=== PATIENT | female | born 1950 | race Caucasian/White ===

== ENCOUNTER 2016-10-03 11:39 | Emergency (ER) | payer OTHER ==
[2016-10-03 12:14] VITALS: BP 129/84
--- NOTE | 2016-10-03 12:24 | UC ---
Hip/Pelvis Pain - HPI Summary HPI Summary: 66 yo female with right hip pain for over a yr has frequent falls past 2 months has had a limp leg jenn - History Of Current Complaint Chief Complaint: UCLowerExtremity Stated Complaint: HIP PAIN Time Seen by Provider: 10/03/16 12:15 Hx Obtained From: Patient Onset/Duration: Gradual Onset, Lasting Days Timing: Constant Severity Initially: Mild Severity Currently: Moderate Pain Intensity: 4 Pain Scale Used: 0-10 Numeric Location: Diffuse Character Of Pain: Aching, Throbbing Aggravating Factor(s): Weight Bearing Alleviating Factor(s): Rest - Allergies/Home Medications Allergies/Adverse Reactions: Allergies Allergy/AdvReac Type Severity Reaction Status Date / Time Carisoprodol [From [employer]] Allergy Intermediate Rash Verified 10/30/15 14:06 PMH/Surg Hx/FS Hx/Imm Hx Endocrine History Of: Denies: Diabetes, Thyroid Disease Cardiovascular History Of: Reports: Hypertension - no meds Denies: Cardiac Disorders Respiratory History Of: Denies: COPD, Asthma GI/ History Of: Denies: Ulcer - Surgical History Surgical History: Yes Surgery Procedure, Year, and Place: Left total [place] [facility] [place], Left rotator cuff repair [facility] [place]; pilonidal cyst - Family History Known Family History: Positive: Cardiac Disease, Hypertension, Diabetes, Other Family History: CA, Alzheimer - Social History Alcohol Use: Occasionally Substance Use Type: None Smoking Status (MU): Never Smoked Tobacco Have You Smoked in the Last Year: No Review of Systems Constitutional: Negative Skin: Negative Eyes: Negative ENT: Negative Respiratory: Negative Cardiovascular: Negative Gastrointestinal: Negative Genitourinary: Negative Motor: Negative Neurovascular: Negative Musculoskeletal: Arthralgia Neurological: Negative Psychological: Negative All Other Systems Reviewed And Are Negative: Yes Physical Exam Triage Information Reviewed: Yes Appearance: Well-Appearing, No Pain Distress, Well-Nourished Vital Signs: Initial Vital Signs Temp 96.7 F 10/03/16 12:09 Pulse 80 10/03/16 12:09 Resp 20 10/03/16 12:09 BP 129/84 10/03/16 12:09 Pulse Ox 97 10/03/16 12:09 Eyes: Positive: Conjunctiva Clear ENT: Positive: Hearing grossly normal, TMs normal. Negative: Nasal congestion, Tonsillar exudate, Trismus, Muffled/hoarse voice Neck: Positive: Nontender, No Lymphadenopathy Respiratory: Positive: Lungs clear, Normal breath sounds, No respiratory distress Cardiovascular: Positive: RRR Musculoskeletal: Positive: ROM Limited @ - right hip, Other: - tender r greater troch Neurological: Positive: Alert Psychological Exam: Normal Skin Exam: Normal Hip Injury Course/Dx - Differential Dx/Diagnosis Provider Diagnoses: right hip DJD. right hip greater trochanteric burisitis Discharge - Discharge Plan Condition: Stable Disposition: HOME Prescriptions: Meloxicam(NF) [Mobic(NF)] 15 mg PO DAILY PRN #30 tab PRN Reason: Pain - Moderate To Severe Patient Education Materials: Hip Bursitis (ED), Arthritis (ED) Forms: *Work Release Referrals: Don Meek MD [Medical Doctor] - Additional Instructions: you may take tylenol if needed Images Front/Back of Body, Lg (Louisa): 1 - pain here 2 - pain here
--- NOTE | 2016-10-03 12:50 | RAD ---
HISTORY: Right hip weakness and pain COMPARISONS: None VIEWS: 3, Frontal view of the pelvis with frontal and frog-leg views of the right hip FINDINGS: BONE DENSITY: Normal. BONES: There is no displaced fracture. JOINTS: There is moderate osteoarthritis of the right hip. ALIGNMENT: There is no dislocation. SOFT TISSUES: Unremarkable. OTHER FINDINGS: None. IMPRESSION: OSTEOARTHRITIS. NO ACUTE OSSEOUS INJURY. IF SYMPTOMS PERSIST, RECOMMEND REPEAT IMAGING.
== END 2016-10-03 13:15 | disposition home or self-care (01) ==
LOC: UCEAST 11:39
DX: M16.11 Unilateral primary osteoarthritis, right hip (principal); M70.61 Trochanteric bursitis, right hip; Y93.9 Activity, unspecified; Z96.652 Presence of left artificial knee joint; Z88.8 Allergy status to other drugs, medicaments and biological substances
CPT/HCPCS: 99212; G0463

== ENCOUNTER 2018-11-21 08:48 | Inpatient (IN) | payer MEDICARE ==
[~2018-11-21 08:48] MED LIST: Buffered Lidocaine 1% SYRIN* 1 ML/SYRINGE INTRADERM ONE; Famotidine IV* 10 MG/ML 2 ML (20 mg) IV ONE; Gabapentin CAP(*) 300 MG PO ONE; Lactated Ringers 1000 ML Bag* 1,000 ML IV SCH; Tranexamic Acid 1,000 MG in NS 0.9% 50 ML* (outpatient use) IV SCH
--- OUTSIDE RECORDS SUMMARY | 2018-11-21 08:53 | XMS REPORT | Continuity of Care Document ---
:1950 External Reference #:[id number] Author Name Milagros Roblero Care Team Providers Name Role Phone Shahida Rocha MD Primary Care Physician Unavailable Payers Date Identification Numbers Payment Provider Subscriber Policy Number: [id number] Medicare Blue Ppo Mai Day PayID: [id number] [address] [address] Policy Number: [id number] [facility] Mai Day Group Number: [id number] [address] PayID: [id number] SHANITA Aguilar [phone] Expires: 2010 Policy Number: [id number] Of [place] Mai Day Group Number: [facility] [address] PayID: [id number] [address] [address] Onset: 2013 Policy Number: [id number] Katie Day PayID: [id number] [address] [place] [address] Advance Directives Description No Information Available Problems Description No Information Family History Date Family Member(s) Observation Comments General Diabetes General Heart Disease General Hypertension General Cancer General Rheumatoid Arthritis Father due to Colon Disease () Social History Type Date Description Comments Sex Unknown Lives With Alone 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 ETOH Use Occasionally consumes alcohol Tobacco Use Start: Unknown Patient has never smoked Smoking Status Reviewed: 11/06/18 Patient has never smoked Exercise Type/Frequency Exercises sporadically Allergies, Adverse Reactions, Alerts Date Description Reaction Status Severity Comments 10/06/2016 Soma Active rash Medications Medication Date Status Form Strength Qnty SIG Indications Ordering Provider No Active Active Unknown Medications 019 Meloxicam Hx Tablets 15mg 30tabs 1 by Aditya Chery, 000 - mouth M.DCesar every 019 day Vitamin C Hx Chewtabs 500mg 1 tab by Unknown 000 - mouth twice a 019 day take with iron Multi Vitamin Hx Tablets daily Unknown 000 - 019 Immunizations Description No Information Available Vital Signs Date Vital Result Comment 11/06/2018 1:20pm Height 65 inches 5'5" Weight 220.00 lb BP Systolic 124 mmHg BP Diastolic 76 mmHg Respiratory Rate 18 /min Body Temperature 97.6 F Pain Level 10 BMI (Body Mass Index) 36.6 kg/m2 10/06/2016 2:57pm Height 65 inches 5'5" Weight 215.00 lb Heart Rate 77 /min BP Systolic Sitting 138 mmHg BP Diastolic Sitting 78 mmHg Respiratory Rate 18 /min Body Temperature 98.0 F Pain Level 6 BMI (Body Mass Index) 35.8 kg/m2 Results Description No Information Available Procedures Date Code Description Status 04/29/2010 49654 Xray Knee 3 Views Completed 04/29/2010 06166 Rad Exam; Knee, Ap&L Completed 03/17/2010 81005 TKR Total Knee Replacement Completed 03/17/2010 75202 TKR Total Knee Replacement Completed 03/09/2010 61995 EKG, Interpretation Only Completed 03/09/2010 80738 Xray Knee 3 Views Completed 03/09/2010 97538 Rad Exam; Knee, Ap&L Completed 06/04/2003 67416 ECHO/Stress Completed 06/04/2003 00198 Treadmill Interp/Report Only Completed 06/04/2003 87980 Stress Test Supervsn W/Out I/R Completed Encounters Type Date Location Provider Dx Diagnosis Office Visit 10/06/2016 Mark Chery M.D. M16.11 Unilateral primary 2:00p [facility] osteoarthritis, right hip Office Visit 01/17/2013 Mark Chery M.D. 924.11 Contusion Knee 9:00a [facility] 924.00 Contusion Thigh 844.9 Sprains & Strains Knee & Leg Unspec Office Visit 03/09/2010 8:45a Orthopedic Aditya Chery, 715.96 Osteoarthrosis [facility] Unspec [facility] Localized Lower Leg Office Visit 02/23/2010 9:00a Orthopedic Vilma 716.96 Arthropathy Unspec [facility] of Treatment Future Appointment(s):12/20/2018 1:45 pm - Aditya Chery M.D. at [facility]11/21/2018 11:00 am - Aditya Chery M.D. at [facility]11/06/2018 - Aditya Chery M.D.M16.11 Unilateral primary osteoarthritis, right hip
--- OUTSIDE RECORDS SUMMARY | 2018-11-21 08:53 | XMS REPORT | Continuity of Care Document ---
:1950 External Reference #:[id number] Author Name Vane Rocha M.D. Address [address] [place] [address] Care Team Providers Name Role Phone Vane Rocha M.D. Care Team Information Department Head Unavailable Vane Rocha M.D. Primary Care Physician Unavailable Payers Date Identification Numbers Payment Provider Subscriber Effective: 2018 Policy Number: [id number] Medicare Blue Ppo Mai Rivera Group Number: [id number] [address] [address] PayID: [id number] [place] [address] Effective: 2015 Policy Number: [id number] [employer]MVP Mai Rivera Expires: 2018 Group Number: [id number] [address] PayID: [id number] [place] [address] Advance Directives Description No Information Available Problems Date Description Provider Status Onset: 10/24/2018 Obesity Vane Rocha M.D. Active Onset: 10/24/2018 Hyperlipidemia Vane Rocha M.D. Active Onset: 10/24/2018 Osteoarthritis of hip, unspecified Vane Rocha M.D. 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 [employer] Contact with blood and/or other bodily fluids at work Tobacco Use Start: Unknown Never Smoked Cigarettes Smoking Status Reviewed: 10/24/18 Never Smoked Cigarettes ETOH Use Occasionally consumes 2 glasses a few alcohol times a week Tobacco Use Start: Unknown nonsmoker Exercise Type/Frequency Exercises rarely Allergies, Adverse Reactions, Alerts Date Description Reaction Status Severity Comments 11/18/2014 Soma RASH Active Medications Medication Date Status Form Strength Qnty SIG Indications Ordering Provider No Active 10/24/ Active Unknown Medications 2018 Note Due To Hx Mai had a Adriana Health Issues 2016 - normal Abhinav, 03/19/ 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 2016 for next 4 days Excuse 12/03/ Hx seen today; 465.8 Vane 2014 - excuse 12/03 [place], 09/30/ and 12/04 M.D. 2015 Sulfamethoxazo 11/18/ Hx Tablets 800-160mg 20tabs 1 tab twice 611.79 Vane he/Trimethopri 2015 - a day x 10 [place], m DS 12/03/ days M.D. 2014 Lorabid 11/23/ Hx 200mg 14unit 1 PO PO bid Adriana 1999 - s Abhinav, 11/30/ CAUSTIC LOADER 1999 Emycin 05/26/ Hx Tabs 333mg 30tabs 1 PO tid Austin Turpin 1997 - For 10 Days Xavier, 11/23/ M.D. 1999 Penicillin VK 07/09/ Hx 250 0units tid Virgilio Sol 1996 - Jarvis, M.D. 1999 Penicillin VK 07/09/ Hx 250 0units tid Virgilio Sol 1996 - Jarvis, M.D. 1999 Penicillin VK 07/09/ Hx 250 0units tid Virgilio Sol 1996 - Jarvis, 11/23/ M.D. 1999 Multivitamins/ / Hx Capsules 1 by mouth Unknown Vitafusion For 0000 - every day Woman 2018 Levaquin / Hx Tablets 500mg 1 by mouth Unknown 0000 - every day 2015 Albuterol / Hx Nebulizer (2.5mg/3ML use one Unknown Sulfate 0000 - ) 0.083% vial in 10/24/ nebulizer 2019 every 4 hours as needed Immunizations Description No Information Available Vital Signs Date Vital Result Comment 10/24/2018 2:24pm BP Systolic 120 mmHg BP Diastolic 90 mmHg BP Systolic Recheck 110 mmHg BP Diastolic Recheck 80 mmHg Heart Rate 76 /min Body Temperature 98.1 F Respiratory Rate 16 /min Height 64 inches 5'4" Weight 222.00 lb BMI (Body Mass Index) 38.1 kg/m2 Right Visual Acuity Distance 20/20 Left Visual Acuity Distance 20/20 04/21/2016 1:41pm BP Systolic 100 mmHg BP Diastolic 64 mmHg Heart Rate 84 /min Body Temperature 98.1 F Respiratory Rate 16 /min Height 63.5 inches 5'3.50" Weight 211.25 lb BMI (Body Mass Index) 36.8 kg/m2 03/19/2016 8:44am BP Systolic 136 mmHg BP Diastolic 80 mmHg Heart Rate 68 /min Body Temperature 97.4 F Respiratory Rate 18 /min Height 63.5 inches 5'3.50" Weight 210.00 lb BMI (Body Mass Index) 36.6 kg/m2 12/18/2015 10:13am BP Systolic 130 mmHg BP Diastolic 92 mmHg Heart Rate 78 /min Body Temperature 98.4 F Height 63.5 inches 5'3.50" Weight 217.00 lb BMI (Body Mass Index) 37.8 kg/m2 09/30/2015 1:58pm BP Systolic 126 mmHg BP Diastolic 80 mmHg Heart Rate 76 /min Body Temperature 98.0 F Respiratory Rate 20 /min Height 64 inches 5'4" Weight 218.00 lb BMI (Body Mass Index) 37.4 kg/m2 12/03/2014 11:42am BP Systolic 120 mmHg BP Diastolic 80 mmHg Heart Rate 80 /min Body Temperature 98.2 F Respiratory Rate 20 /min O2 % BldC Oximetry 97 % Height 64 inches 5'4" Weight 210.00 lb BMI (Body Mass Index) 36.0 kg/m2 11/18/2014 8:58am BP Systolic 116 mmHg BP Diastolic 78 mmHg Heart Rate 72 /min Body Temperature 96.3 F Height 64 inches 5'4" Weight 213.25 lb BMI (Body Mass Index) 36.6 kg/m2 11/24/1999 2:23pm Body Temperature 97.3 F Weight 190.00 lb Results Test Date Facility Test Result H/L Range Note Ua - Non Micro (Fma) 12/18/2015 [facility] Appearance CLEAR (607)- - Color YELLOW Glucose, Urine (Fma/[facility]/CTX) NEG Bilirubin NEG Ketones NEG SP Grav 1.010 Blood NEG PH 6.0 Protein NEG Urobil 0.2 Nitrite NEG Leukocytes (Fma/[facility] [place]) NEG Measles/Mumps/Rubella 12/18/2015 [facility] Rubella 11.20 Immune 1, 2 Immunity 14[address] [facility] Antibodies, index >0.99 [place] [address] IgG (607)- - Rubeola Ab, IgG >300.0 AU/mL Immune >29.9 3 Mumps Abs, IgG 209.0 AU/mL Immune >10.9 4 Complete Blood Count 11/18/2014 [facility] (a) WBC 6.8 x10^3/UL 3.6-9.6 RBC 4.95 x10^6/UL 3.90-5.70 HGB 15.0 g/dL 12.1-17.2 HCT 46 % 36-50 MCV 92.0 fL 82.2-97.4 MCH 30.3 pg 27.6-33.3 MCHC 33.0 g/dL 33.0-35.5 RDW 12.8 % 11.6-13.7 PLT 263 x10^3/UL 150-400 MPV 7.2 fL Low 7.4-10.4 Gran # 4.3 x10^3/UL 1.5-7.2 Lymph# 2.2 x10^3/UL 0.7-4.9 [place]# 0.3 x10^3/UL 0.1-0.9 Gran % 61.4 % 42.2-75.2 Lymph % 33.7 % 20.5-51.1 [place]% 4.9 % 1.7-9.3 Comprehensive Metabolic 11/18/2014 Jensen Ania ([facility]) Sodium 137 mEq/L 134-149 Prof Potassium 3.9 mEq/L 3.6-5.5 Chloride 99 mEq/L 94-112 Carbon Dioxide 30 mEq/L 21-32 Glucose 104 mg/dL 70-105 BUN 13 mg/dL 6-26 Creatinine 0.6 mg/dL 0.6-1.4 BUN/Creat Ratio 21.7 CALC 8.0-36.0 Calcium 10.1 mg/dL 8.6-10.2 Total Protein 7.5 g/dL 6.4-8.3 Albumin 4.2 g/dL 3.8-5.5 Globulin 3.3 g/dL 2.0-4.8 A/G Ratio 1.3 CALC 0.6-2.3 Alk. Phosphatase 73 U/L 30-110 Alt (SGPT) 17 U/L 7-35 Ast (Sgot) 17 U/L 5-34 Total Bilirubin 0.7 mg/dL 0.2-1.3 Lipid Profile 11/18/2014 Jensen Ania (Fma) Cholesterol 242 mg/dL High 120-200 Triglycerides 156 mg/dL 30-200 HDL Cholesterol 47 mg/dL 30-85 LDL (Calculated) 164 CALC High 0-129 VLDL Cholesterol 31 mg/dL 0-50 HDL Risk Factor 5.1 CALC High 0.0-4.4 Ua - Non Micro (Fma) 11/18/2014 [facility] Appearance CLEAR (607)- - Color YELLOW Glucose, Urine (Fma/[facility]/CTX) NEG Bilirubin NEG Ketones NEG SP Grav <=1.005 Blood NEG PH 6.0 Protein NEG Urobil 0.2 Nitrite NEG Leukocytes (Fma/[facility]) NEG Laboratory test 11/18/2014 [facility] Thin Prep W/HPV SEE NOTE 5 finding [address] [place] [address] [phone] 1 1 SST 2 Non-immune <0.90 Equivocal 0.90 - 0.99 Immune >0.99 3 Negative <25.0 Equivocal 25.0 - 29.9 Positive >29.9 Presence of antibodies to Rubeola is presumptive evidence of immunity except when acute infection is suspected. 4 Negative <9.0 Equivocal 9.0 - 10.9 Positive >10.9 A positive result generally indicates past exposure to Mumps virus or previous vaccination. 5 [employer] DEPARTMENT OF PATHOLOGY or Ext. 0366, Fax COMBINED HPV / TOPOGRAPHICAL DRAFTER CYTOLOGY REPORT Patient: MAI RIVERA : 1950 AGE: 64 Y SEX: F Acct: [id number] Procedure Date: 11/18/2014 Date Received: 11/19/2014 Requesting Provider: VANE VALIENTE MD Location: [facility] [place] Case No. [id number] Requisition #: [id number] CYTOLOGIC INTERPRETATION: SPECIMEN ADEQUACY SATISFACTORY FOR EVALUATION, ENDOCERVICAL TRANSFORMATION ZONE COMPONENT PRESENT GENERAL CATEGORIZATION NEGATIVE FOR INTRAEPITHELIAL LESIONS OR MALIGNANCY RECOMMENDATIONS See Related Reference Test Result below. Refer to the corresponding web sites for 2012 updated general recommendation guidelines of U.S. preventive service task force for cervical cancer screening, and www.asccp.org//uvestacrx1432. COMMENTS Thin Prep Pap tests are examined with an FDA approved location-guidance system. RELATED REFERENCE TEST RESULT: HPV: "HIGH RISK" Source: CERVICAL Result: NEGATIVE Test Method: Low Volume rfx Performing Location: METHODOLOGY: HPV high risk is performed with the FDA approved Digene HC2 method whenever the specimen is cellular enough and the quantity of sample remaining in the vial after Thin Prep PAP slide preparation equals or greater than 4 ml. In cases of smaller sample (0.5 to 3.9 ml) the HPV high risk testing will be performed with Low Volume rfx. (01 RN) Digene Hybrid Capture (HC2). FDA approved and detects 13 "high risk" HPV types (16/18/31/33/35/39/45/51/52/56/58/59/68) without differentiation. (02 BN) Low Volume rfx detects fourteen "high risk" HPV types (16/18/31/33/35/39/45/51/52/56/58/59/66/68) without differentiation. 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 It is not a diagnostic procedure and should not be used as the sole means of detecting cervical cancer. Both false-positive and false-negative reports do occur. 00 UA Pap Smear performed at [facility] Dir: Concepcion Ramires MD, [address] [facility] [address] 01 job placement counselor [facility] [place] Dir: Jessica Benitez MD, [address] [facility] [address] 02 [facility] [place] Dir: Steven Pillai MD, [address] [place] [id number] For inquiries regarding HPV test results, the physician may contact [facility]: [phone] . Procedures Date Code Description Status 04/21/2016 52094 Electrocardiogram Complete Completed 09/30/2015 27231 Pulse Oximetry Completed 12/03/2014 27042 Pulse Oximetry Completed 11/20/2014 13546522 Mammogram Completed 08/15/2011 30883746 Colonoscopy Completed Encounters Type Date Location Provider Dx Diagnosis Office Visit 04/21/2016 [facility] Office Vane Rocha, R06.02 Shortness of breath 2:00p M.D. Office Visit 03/19/2016 [facility] Office Vane Rocha, J20.9 Acute bronchitis, 8:40a M.D. unspecified Office Visit 12/18/2015 [facility] Office Adriana Abhinav, Z00.01 Encounter for 10:15a CAUSTIC LOADER general adult medical exam w abnormal findings Z12.31 Encntr screen mammogram for malignant neoplasm of breast M25.551 Pain in right hip Office Visit 09/30/2015 2:00p [facility] Office Elizabeth J06.9 Acute upper [place], Afnp-C respiratory infection, unspecified Office Visit 12/03/2014 11:40a Main Office Vane Rocha, 465.8 Upper Respiratory M.D. Infections Acute Other Multiple Sites Office Visit 11/18/2014 9:00a [facility] Vane Rocha, V70.0 Examination M.D. 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 Eat protein and vegetables first then carbohydrates last. Get at least 150 minutes of moderate aerobic activity or 75 minutes of vigorous aerobic activity a week, or a combination of moderate and vigorous activity. General goal of 30 minutes of physical activity a day.Z00.01 Encounter for general adult medical examination with abnormal findingsNew Labs:Comp Metabolic-ALL [facility], Ordered: 10/24/18Lipid Panel-[facility], Ordered: 10/24/18CBC Electronic-ALL [facility], Ordered: 10/24/18Comments:Encourage an active and healthy lifestyle with proper eating habits including fruits, vegetables, 6-8 glasses of water a day and monitoring portion size. Recommend 30 minutes of daily physical activityincluding walking, aerobic exercise, sports, yoga or dance. Any activity is better than no activity.Recommend routine eye and dental exams. Next physical is due in 1-2 years. due sldcnnnE86.9 Osteoarthritis of hip, unspecifiedComments:refer back to Dr Sanders78.5 Hyperlipidemia, unspecifiedComments:Goal LDL is <130, HDL >40, Triglycerides < 200Z12.31 Encounter for screening mammogram for malignant neoplasm of breastNew Xrays:Mammography Screening, Bilateral; 2-View Each Breast, Ordered: Comments:refer for mammogram and DEXAZ12.11 Encounter for screening for malignant neoplasm of colonComments:refer for [id number] Rash and other nonspecific skin eruptionComments:refer ktlxwvkeqwlJ86.20 Alcohol dependence, uncomplicatedComments:Recommendation is no more than 2 alcoholic drinks/day for men and 1 drink/day for womenRecommend cutting back on alcohol use, if needing help doing so call the officeAllNew Medication:No Active Medications -Comments :~B_~U_Medication Management~b_~u_ Patient Understands medications she's taking ? Yes No Are there Barriers to Adherence? Yes No Has the patient been asked about herbal supplements and therapies, and OTC meds? Yes No
[2018-11-21] MEDS ORDERED: Famotidine IV* 10 MG/ML 2 ML (20 mg) ONE (09:34)
[2018-11-21] MEDS ORDERED: ceFAZolin 2 GM in NS PREMIX(*) 2 GM/100 ML BAG IVPB ONE (09:34)
[2018-11-21] MEDS ORDERED: Buffered Lidocaine 1% SYRIN* 1 ML/SYRINGE INTRADERM ONE (09:34)
[2018-11-21] MEDS ORDERED: Gabapentin CAP(*) 300 MG ONE (09:34)
[2018-11-21] MEDS ORDERED: Midazolam* 1 MG/ML 5 ML VIAL (5 MG) ONE (10:55)
[2018-11-21] MEDS ORDERED: fentaNYL* 50 MCG/ML 2 ML VIAL (100 MCG VIAL) ONE (10:55)
[2018-11-21] MEDS ORDERED: Bupivacaine 0.5% W/EPI SDV* 30 ML VIAL ONE (11:48)
[2018-11-21] MEDS ORDERED: Phenylephrine 10 MG/ML VIAL* 1 ML VIAL ONE (12:53)
[2018-11-21] MEDS ORDERED: Lidocaine 2% PF * 5 ML VIAL ONE (12:53)
[2018-11-21] MEDS ORDERED: Ketorolac INJ* 30 MG/ML 1 ML VIAL ONE (12:53)
[2018-11-21] MEDS ORDERED: Propofol* 10 MG/ML 20 ML BTL ONE ×3 (12:53→14:18)
[2018-11-21] MEDS ORDERED: Ondansetron INJ* 2 MG/ML VIAL ONE (12:53)
[2018-11-21] MEDS ORDERED: HYDROmorphone INJ1* 1 MG/ML SYRINGE ONE (13:43)
[2018-11-21] MEDS ORDERED: HYDROmorphone INJ1* 1 MG/ML SYRINGE IV PRN (13:55)
[2018-11-21] MEDS ORDERED: DiMENhydriNATE IV* 50 MG/ML VIAL IV PUSH PRN (13:55)
[2018-11-21] MEDS ORDERED: Naloxone* 0.4 MG/ML 1 ML VIAL IV PRN (13:55)
[2018-11-21] MEDS ORDERED: oxyCODONE/Acetamin 5/325 MG* TAB PO PRN (13:55)
[2018-11-21] MEDS ORDERED: Gabapentin CAP(*) 100 MG PO ONE (13:56)
[2018-11-21] MEDS ORDERED: EPHEDrine (Pressors)* 50 MG/ML VIAL ONE (14:00)
[2018-11-21] MEDS ORDERED: Ondansetron ODT TAB* 4 MG PO PRN (14:58)
[2018-11-21] MEDS ORDERED: diPHENhydraMINE PO* 25 MG PO PRN (14:58)
[2018-11-21] MEDS ORDERED: Cyclobenzaprine TAB* 10 MG PO PRN (14:58)
[2018-11-21] MEDS ORDERED: diPHENhydraMINE IV* 50 MG/ML 1 ml VIAL (BENADRYL) IV PRN (14:58)
[2018-11-21] MEDS ORDERED: Magnesium Hydroxide LIQ* 30 ML UDC PO PRN (14:58)
[2018-11-21] MEDS ORDERED: Ondansetron INJ* 2 MG/ML VIAL IV PRN (14:58)
[2018-11-21] MEDS ORDERED: Docusate CAP* 100 MG PO PRN (14:58)
[2018-11-21] MEDS ORDERED: Morphine INJ* 2 MG/ML 1 ML SYRINGE (TWO MG - NEW SYRINGE VERSION) IV PRN (14:58)
[2018-11-21] MEDS ORDERED: Lactated Ringers 1000 ML Bag* 1,000 ML IV SCH (15:00)
[2018-11-21] MEDS: Acetaminophen TAB* 325 MG PO SCH (16:41)
[2018-11-21] MEDS: traMADol TAB* 50 MG PO SCH ×2 (16:41→19:58)
--- NOTE | 2018-11-21 18:13 | PN ---
Progress Note - Progress Note Date of Service: 11/21/18 Note: Pt seen POD 0. Pain is well controlled, no CP, SOB dizziness, nausea. Dressing CDI, DF/PF intact, DP2+, sensation intact to light touch distally
[2018-11-21] MEDS: ceFAZolin 1 GM ADVAN(*) 1 GM in NS 0.9% 50 ML* 50 ML IVPB SCH (19:59)
[2018-11-22] MEDS: Acetaminophen TAB* 325 MG PO SCH ×5 (00:08→23:56)
[2018-11-22] MEDS: oxyCODONE TAB* 5 MG TAB PO PRN ×3 (00:13→12:58)
[2018-11-22] MEDS: ceFAZolin 1 GM ADVAN(*) 1 GM in NS 0.9% 50 ML* 50 ML IVPB SCH ×2 (03:20→13:24)
[2018-11-22] MEDS: traMADol TAB* 50 MG PO SCH ×4 (03:20→21:04)
[2018-11-22 05:30] LABS: Hematocrit 33 % (33-41); Hemoglobin 11.5 g/dL (12.0-16.0); Mean Platelet Volume 7.8 fL (7.4-10.4); Platelet Count 192 10^3/uL (150-450)
[2018-11-22 05:54] LABS: Calcium 8.1 mg/dL (8.6-10.3); EGFR African American 136.7 (>60); Potassium 3.4 mmol/L (3.5-5.0)
[2018-11-22] MEDS: Aspirin TAB* 325 MG PO SCH (08:51)
--- NOTE | 2018-11-22 09:39 | PN ---
Progress Note - Progress Note Date of Service: 11/22/18 SOAP: Subjective: []Pt seen POD 1 sp RTH. Denies CP, SOB, dizziness, nausea. She had a presyncopal episode when OOB last night with lightheadedness, though has not felt this way since. She has not yet been OOB today. Pain is well controlled. Objective: []General: Appears well, NAD RLE: Right hip dressing CDI, thigh is soft, DF/PF intact, DP2+, sensation intact to light touch distally Calves supple and nontender without erythema, edema or palpable cords Assessment: []POD [address] Chery 11/21/18 Plan: []WBAT PT/OT Posterior hip precautions ASA 325 QD x 30 days for DVT prophylaxis Monitor for lightheadedness, slow position changes Soft BPs, ordered 500 ml bolus NS. Mild hyponatremia resume regular diet and recheck tomorrow. Mild hypokalemia ordered potassium 20 meq PO BID and recheck tomorrow Anticipate DC home tomorrow Vital Signs Temp 97.7 F 11/22/18 07:34 Pulse 79 11/22/18 07:34 Resp 18 11/22/18 08:51 BP 102/44 11/22/18 07:34 Pulse Ox 94 11/22/18 07:34 Intake & Output 11/21/18 11/22/18 11/22/18 18:59 06:59 18:59 Intake Total 2850 2326 600 Output Total 600 0 Balance 2250 276 600 Weight 215 lb Intake: IV Fluids 2850 941 LR 2700 941 NS 100ML, Cefazolin 2G 100 TRANEXAMIC ACID 1GM 50ML 50 IVPB 55 ABX - CEFAZOLIN 55 Oral 1330 600 Output: Cruz 600 2049 Laboratory Last Values Hgb 11.5 g/dL (12.0-16.0) L 11/22/18 05:15 Hct 33 % (33-41) 11/22/18 05:15 Plt Count 192 10^3/uL (150-450) 11/22/18 05:15 MPV 7.8 fL (7.4-10.4) 11/22/18 05:15 Sodium 133 mmol/L (135-145) L 11/22/18 05:15 Potassium 3.4 mmol/L (3.5-5.0) L 11/22/18 05:15 Chloride 104 mmol/L (101-111) 11/22/18 05:15 Carbon Dioxide 25 mmol/L (22-32) 11/22/18 05:15 Anion Gap 4 mmol/L (2-11) 11/22/18 05:15 BUN 7 mg/dL (6-24) 11/22/18 05:15 Creatinine 0.54 mg/dL (0.51-0.95) 11/22/18 05:15 Est GFR ( Amer) 136.7 (>60) 11/22/18 05:15 Est GFR (Non-Af Amer) 113.0 (>60) 11/22/18 05:15 BUN/Creatinine Ratio 13.0 (8-20) 11/22/18 05:15 Glucose 117 mg/dL (70-100) H 11/22/18 05:15 Calcium 8.1 mg/dL (8.6-10.3) L 11/22/18 05:15
[2018-11-22] MEDS ORDERED: NS 0.9% 500 ML* 500 ML IV SCH (10:00)
[2018-11-22] MEDS: Potassium Chlor TAB* 20 MEQ TAB.ER PO SCH ×2 (10:54→21:04)
--- NOTE | 2018-11-22 12:31 | OP ---
CC: Shahida Rocha MD, [facility].* DATE OF OPERATION: 11/21/18 - ROOM #341 DATE OF : 54. SURGICAL CARE: Right hip. SURGEON: Aditya Chery MD. REPRODUCTION TECHNICIAN: 1. HOLLY Solano, airline pilot/first officer. 2. Adriana Thomson, metallurgical lab technician. ANESTHESIOLOGIST: Dr. Malia Alfaro. ANESTHESIA: Spinal with IV sedation. PRE-OP DIAGNOSIS: Severe arthritis of the right hip. POST-OP DIAGNOSIS: Severe arthritis of the right hip. OPERATIVE PROCEDURE: Right total hip replacement. COMPONENTS UTILIZED: Jagdeep Continuum cup 50 mm outer diameter with cluster holes; one screw was utilized. There is an elevated liner located posteriorly. The liner is E poly. On the femoral side, an M/L taper standard stem size 7.5. The head is a - 3.5 32 mm cobalt-chrome head. COMPLICATIONS: There were no complications. DRAINS: There were no drains. BLOOD LOSS: 200 mL. REPLACEMENT: Crystalloid fluids. INDICATIONS: She has had severe arthritis for the last couple of years. Her walking distance has been severely limited, less than one block, stairs extremely difficult, one at a time, and nighttime awakening with her pain. DESCRIPTION OF PROCEDURE: The patient was brought to the operating room and placed on the operating room table in a supine position and then into the seated position for the spinal and into the supine position. Cruz catheter was inserted. The patient was then carefully positioned on the table in the left lateral position with the down side left trochanter having two folded blankets underneath it to elevate the pelvis towards the ceiling. The pelvis was secured over the ASIS and the sacrum with a hip positioner. The down side leg padded so there was no pressure on the perineal nerve at the fibular head and neck. Blankets placed between the legs and the groin was then sealed off and an axillary roll was care-fully positioned and the patient's spine and shoulders were carefully positioned. The table was placed in Trendelenburg. The right hip was then given a preliminary chlorhexidine prep and then a formal prep from the right flank to the foot with ChloraPrep. After prepping, draping and sealing off, we did our universal protocol time out confirming Mai Britt and our plan for right total hip replacement. We all agreed and we proceeded. The right hip was approached with an approximately 5-inch curving posterolateral skin incision going from the greater trochanter distally for 2-1/ 2 to 3 inches and curving proximally and posteriorly for 2 inches. The skin and subcu divided and careful hemostasis was checked and achieved throughout this case utilizing electrocautery. The deep fascia was divided. The subcu was divided down through the iliotibial band at the greater trochanter. The IT band was opened up and the fascia over the gluteus jarod also opened in line with the skin incision. A Charnley retractor was carefully inserted. The trochanteric bursa was traversed and soft tissues posterior to the trochanter were swept posteriorly. A blunt Hohmann retractor was placed under the gluteus medius exposing the piriformis. The piriformis and conjoint tendon were carefully undone from the piriformis fossa insertions. Each was marked with a # 2 Surgidac suture and the underlying capsule was also marked with a suture. A careful posterior approach was then done to the hip with careful hemostasis. The superior retractor went under the gluteus minimus a well. Superior capsulotomy was performed and then the hip was dislocated without difficulty. The femoral neck was marked with a neck cutting guide for the M/L taper. The neck was cut approximately a finger breadth proximal to the lesser trochanter. Retraction for the acetabulum was obtained with sharp Hohmann's anteriorly and posteriorly. Blunt Hohmann's superiorly and inferiorly. The remainder of the labrum was excised posteriorly, superiorly, and anteriorly. The medial osteophyte was carefully excised. Reaming was then done 44 through 50 and at 50 we had nice bleeding subchondral and cancellus bone. The acetabulum was irrigated with saline and 50 Continuum cup was impacted into position, 45 degrees of abduction, 20 degrees of anteversion with a nice tight fit. A screw was placed superiorly and an elevated liner for a 32 head was then placed posteriorly. Osteophytes were checked and were not overhanging. The acetabulum was packed on the femoral side. We used a canal finder, box osteotome, and trochanteric reamer. Broaching was done 4 through . At 02-12, we did a trial reduction with a standard neck and a +0 head with nice fit with some very slight push-pull, no tendency towards dislocation and extension, flexion of 90 degrees allowed IR and adduction approaching 30 to 40 degrees prior to dislocation. The femoral canal was cleaned with saline. A 7.5 standard M/L taper stem was impacted into position in 15 to 20 degrees of anteversion. It was a little more proud than the trial reduction with the broach. So, I used a -3.5 32 mm head on a cleaned trunnion. During closure, we checked again for hemostasis. I did not think drains were necessary. The piriformis and conjoint tendon reapproximated to the posterior superior greater trochanter with the Surgidac sutures. We irrigated several times during closure with saline swabbing the soft tissues with clean lap sponges. The patient also got tranexamic acid at the start of the case to assist with blood loss and the iliotibial band closed with interrupted #1 Vicryl sutures, with deep and superficial subcu closed with 0 Vicryl sutures, superficial subcu closed with 2-0 Vicryl and then the skin closed with stanford. The skin was washed and dried and covered with Betadine-soaked Release followed by sterile gauze, ABD pads, and then paper tape. Patient was returned to the supine position onto the hospital bed in stable condition and into the recovery room. The procedure was well tolerated. [id number]/[facility] #: [id number] JANAK
[2018-11-22] MEDS ORDERED: Bisacodyl SUPP* 10 MG SUPP PR PRN (14:58)
[2018-11-23] MEDS: traMADol TAB* 50 MG PO SCH ×2 (03:26→08:36)
[2018-11-23 06:49] LABS: Hematocrit 33 % (33-41); Hemoglobin 11.4 g/dL (12.0-16.0); Mean Platelet Volume 8.2 fL (7.4-10.4); Platelet Count 177 10^3/uL (150-450)
[2018-11-23 07:03] LABS: BUN/Creatinine Ratio 13.7 (8-20); Calcium 8.3 mg/dL (8.6-10.3); EGFR Non-African American 120.7 (>60); Potassium 3.8 mmol/L (3.5-5.0)
[2018-11-23] MEDS: Acetaminophen TAB* 325 MG PO SCH (07:14)
--- NOTE | 2018-11-23 08:14 | PN ---
Progress Note - Progress Note Date of Service: 11/23/18 Note: POD #2 VSStable. Hct. 33%, same as yesterday. Awake, alert, cooperative and breathing easily. She got some rest last PM. Right hip dressing is clean and dry. Exercises done right hip, knee, and ankle. Active movements in all directions hip and ankle. Ambulated with walker WBAT right. Eager to go home. IMP: Stable and doing well. Acute blood loss anemia. Plans: Home today.
[2018-11-23] MEDS: Aspirin TAB* 325 MG PO SCH (08:36)
[2018-11-23] MEDS: Potassium Chlor TAB* 20 MEQ TAB.ER PO SCH (08:37)
--- NOTE | 2018-11-23 11:24 | DS ---
Orthopedic Discharge Summary - Discharge Summary Date of Admission:11/21/18 Date of Discharge: 11/23/18 Date of Surgery: 11/21/18 Attending Orthopedic Provider: Dr Chery Pre-operative Diagnosis: right hip osteoarthritis Operative Procedure: right total hip arthroplasty Condition of Patient: stable History: ARMIDA RIVERA is a 68 year old F with years of increasingly severe right hip pain. Patient has failed conservative management and has elected to undergo a right total hip replacement Hospital Course: ARMIDA was admitted to [facility] on 11/21/18. Patient underwent a right total hip replacement without complication followed by a brief recovery in PACU and transfer to the Short Stay Surgical Unit in stable condition. Our hospitalist service, physical therapy and occupational therapy also participated in this patients care. Post-op day 1: patient was alert and in no acute distress. Dressing was clean, dry and intact. Operative extremity dorsiflexion and plantarflexion intact, sensation intact to light touch distally, DP2+. Post-op day two: dressing was changed, incision was clean , dry and intact. Patient was deemed to be medically and orthopedically stable for discharge home. Physical therapy goals were met. Home Medications Medication Instructions Recorded Confirmed Type Ibuprofen TAB* Advil TAB* 5 tab PO ONCE PRN 11/09/18 11/21/18 History Eloise-Fusion Power C 1 tab.chew PO ONCE 11/09/18 11/21/18 History Acetaminophen TAB* [Tylenol TAB*] 975 mg PO 0000,0800,1600 tab 11/23/18 Rx Aspirin TAB* [Aspirin 325 MG TAB*] 325 mg PO DAILY 28 Days #28 tab 11/23/18 Rx Docusate CAP* [Colace Cap*] 100 mg PO BID PRN #90 cap 11/23/18 Rx traMADol TAB* [Ultram*] 50 mg PO Q6H PRN #56 tab MDD 8 11/23/18 Rx Discharge Instructions following Orthopedic Surgery: Activity: * Weight Bearing as tolerated * Continue physical therapy and occupational therapy exercises as shown * Home PT to begin right away Hip replacements: Continue Hip Precautions- do not cross legs or bend greater than 90 degrees/squat Wound care: * OK to shower on post-op day 3, no bathing, swimming, or submerging wound. * Use gentle soap, pat dry. Cover with gauze, DEBBIE wrap or tape. * Home nurse to do wound checks Call Orthopedic office for: * Increased drainage * Redness * Increased pain * Fever Go to ER with shortness of breath or chest pain. Diet: * Regular diet * Increase fluids and fiber to prevent constipation. * Continue to use stool softeners, call office if no bowel motion within 48 hours. Medications See Home Medication List in your packet for medications that you should take after discharge. DVT Prophylaxis Aspirin Dosinmg once a day for 30 days post op Pain Control: tramadol 50 mg 1-2 tabs every 6 hours as needed for pain, max 8 per day Antibiotics are required prior to any dental work. FOLLOW UP: Follow up with [Miri] in 4 weeks, sooner with concerns. call for appointment Please call our office with any questions or concerns ([phone])
[2018-11-23 12:08] VITALS: BP 117/58
== END 2018-11-23 12:25 | disposition home health service (06) | DRG 470 ==
LOC: AA 08:48 → SSU 16:36
PROVIDERS: ADMIT Orthopaedic Surgery; ATTEND Orthopaedic Surgery
PROC: 0SR902A Replacement of Right Hip Joint with Metal on Polyethylene Synthetic Substitute, Uncemented, Open Approach (ICD-10-PCS; principal; 2018-11-21 10:45)
DX: M16.11 Unilateral primary osteoarthritis, right hip (principal); E87.1 Hypo-osmolality and hyponatremia; D62 Acute posthemorrhagic anemia; Z96.652 Presence of left artificial knee joint; E78.00 Pure hypercholesterolemia, unspecified; E78.5 Hyperlipidemia, unspecified; E66.9 Obesity, unspecified; F10.20 Alcohol dependence, uncomplicated; G43.909 Migraine, unspecified, not intractable, without status migrainosus; Y90.9 Presence of alcohol in blood, level not specified; M25.751 Osteophyte, right hip; E87.6 Hypokalemia; Z68.36 Body mass index [BMI] 36.0-36.9, adult; Z83.3 Family history of diabetes mellitus; Z82.49 Family history of ischemic heart disease and other diseases of the circulatory system; Z82.61 Family history of arthritis; Z88.8 Allergy status to other drugs, medicaments and biological substances; Z80.0 Family history of malignant neoplasm of digestive organs; Z82.3 Family history of stroke
CPT/HCPCS: 36415; 72170; 80048; 85014; 85018; 85049; 88304; 88311; A9270-GY; C1713; C1776; G8987-GO-CJ; G8988-GO-CI; G8989-GO-CI; J0690; J1170; J1885; J2250; J2405; J2704; J3010

== ENCOUNTER → 2018-12-09 11:44 | Emergency (ER) | payer MEDICARE ==
[~2018-12-09 11:44] MED LIST changes: -Buffered Lidocaine 1% SYRIN* 1 ML/SYRINGE INTRADERM ONE; -Famotidine IV* 10 MG/ML 2 ML (20 mg) IV ONE; -Gabapentin CAP(*) 300 MG PO ONE; -Lactated Ringers 1000 ML Bag* 1,000 ML IV SCH; +Morphine 4 MG/ML VIAL (1 ml) 4 MG/ML VIAL IM ONE; -Tranexamic Acid 1,000 MG in NS 0.9% 50 ML* (outpatient use) IV SCH
--- NOTE | 2018-12-09 12:12 | ED ---
Lower Extremity - HPI Summary HPI Summary: 68 year old F [facility] accompanied by two daughters complains of sharp right hip pain, right hip swelling, and inability to ambulate since , after doing physical therapy exercises in her bed and hearing something pop on 12/07/18. Patient has treated pain with tramadol at 10:00 today [employer] per daughter with relief. The patient now rates the pain 4/10 in severity. Symptoms aggravated by nothing. Symptoms alleviated by nothing. Patient reports right leg weakness. Daughter reports shortness of breath, nausea, and dizziness upon exertion. Patient denies chest pain and urinary symptoms. Patient had right total arthroplasty on 11/21/18 at [facility] without complications per Dr. Chery's surgical report. Patient was discharged from physical therapy on 12/06/18. On , daughter called Dr. Chery's office and made an appointment for . This morning, daughters could not wait until appointment so they brought patient to ED d/t pain. Patient usually uses cane, though did not need cane until she heard pop on 12/07/18. Patient also has left total knee done. Vital signs at triage: HR 104 bpm, BP 138/67, O2 sat 96 % Home Medications Medication Instructions Recorded Confirmed Type EloiseWire Power C 1 tab.chew PO ONCE 11/09/18 12/09/18 History Aspirin TAB* [Aspirin 325 MG TAB*] 325 mg PO DAILY 28 Days #28 tab 11/23/18 Rx traMADol TAB* [Ultram*] 50 mg PO Q6H PRN #56 tab MDD 8 11/23/18 12/09/18 Rx - History of Current Complaint Chief Complaint: EDExtremityLower Stated Complaint: RIGHT LEG/HIP PAIN PER PT Time Seen by Provider: 12/09/18 12:04 Hx Obtained From: Patient, Family/Go Go Dancer - Daughters Mechanism Of Injury: Other - doing physical therapy exercises and hearing something pop on 12/07/18 Onset/Duration: Still Present Severity Currently: Moderate Pain Intensity: 4 Pain Scale Used: 0-10 Numeric Timing: Constant Location: Is Discrete @ - right hip Character Of Pain: Sharp Associated Signs And Symptoms: Positive: Negative - chest pain and urinary symptoms, Other - right leg weakness; shortness of breath, nausea, and dizziness upon exertion Aggravating Factor(s): Nothing Alleviating Factor(s): Nothing - Allergies/Home Medications Allergies/Adverse Reactions: Allergies Allergy/AdvReac Type Severity Reaction Status Date / Time carisoprodol [From Soma] Allergy Rash Verified 12/09/18 11:46 PMH/Surg Hx/FS Hx/Imm Hx Previously Healthy: No Endocrine/Hematology History: Denies: Hx Diabetes, Hx Thyroid Disease Cardiovascular History: Reports: Hx Hypertension - no meds Denies: Other Cardiovascular Problems/Disorders Respiratory History: Reports: Hx Pneumonia Denies: Hx Asthma, Hx Chronic Obstructive Pulmonary Disease (COPD), Other Respiratory Problems/Disorders GI History: Denies: Hx Ulcer, Other GI Disorders Musculoskeletal History: Reports: Hx Arthritis - RIGHT HIP Sensory History: Reports: Hx Contacts or Glasses - READING GLASSES Denies: Hx Hearing Aid Opthamlomology History: Reports: Hx Contacts or Glasses - READING GLASSES Neurological History: Reports: Hx Headaches, Hx Migraine - HX OF-NONE IN "A LONG TIME" Denies: Other Neuro Impairments/Disorders - Surgical History Surgery Procedure, Year, and Place: Left total knee replacement [facility] 2010 years ago, Left rotator cuff repair [facility] 2005; pilonidal cyst. right total arthroplasty on 11/21/18 at [facility] Hx Anesthesia Reactions: No Infectious Disease History: No Infectious Disease History: Denies: Hx Clostridium Difficile, Hx Hepatitis, Hx Human Immunodeficiency Virus (HIV), Hx of Known/Suspected MRSA, Hx Shingles, Hx Tuberculosis, Hx Known/ Suspected VRE, Hx Known/Suspected VRSA, History Other Infectious Disease, Traveled Outside the [place] in Last 30 Days - Family History Known Family History: Positive: Cardiac Disease, Hypertension, Diabetes, Other Family History: CA, Alzheimer - Social History Alcohol Use: None Hx Substance Use: No Substance Use Type: Reports: None Hx Tobacco Use: No Smoking Status (MU): Never Smoked Tobacco Have You Smoked in the Last Year: No Review of Systems Negative: Chest Pain Positive: Shortness Of Breath Positive: Nausea Genitourinary: Negative Positive: Other - sharp right hip pain, inability to ambulate. right hip swelling, right leg numbness Neurological: Other - Dizziness All Other Systems Reviewed And Are Negative: Yes Physical Exam - Summary Physical Exam Summary: Appearance: Ill-appearing, moderate pain distress, well-nourished Skin: Warm, color reflects adequate perfusion, dry Head: Normal Head/Face inspection, atraumatic Eyes: Conjunctiva clear ENT: Normal inspection Neck: Supple, no nodes, no JVD Respiratory: Lungs clear, normal breath sounds, no respiratory distress Cardio: RRR, No murmur, pulses normal, brisk capillary refill Abdomen: Soft, nontender Bowel sounds: Present Musculoskeletal: The surgical incision looks good and has stereostrips. There is no drainage, no redness, no induration. There is minimal thigh swelling, good ROM of right knee. There is no other lower leg tenderness and no apparent dislocation of the hip. Psychological: Normal Neuro: Alert, muscle tone normal, no focal deficit Triage Information Reviewed: Yes Vital Signs On Initial Exam: Initial Vitals Temp Pulse Resp BP Pulse Ox 99 F 104 14 138/67 96 12/09/18 11:47 12/09/18 11:47 12/09/18 11:47 12/09/18 11:47 12/09/18 11:47 Vital Signs Reviewed: Yes Diagnostics - Vital Signs Vital Signs Temp Pulse Resp BP Pulse Ox 12/09/18 11:47 99 F 104 14 138/67 96 - Laboratory Lab Statement: Any lab studies that have been ordered have been reviewed, and results considered in the medical decision making process. - Radiology Hip/Pelvis Radiology Interpretation Completed By: Radiologist Summary of Radiographic Findings: STATUS POST RIGHT HIP ARTHROPLASTY. NO ACUTE OSSEOUS INJURY. IF SYMPTOMS PERSIST, RECOMMEND REPEAT IMAGING. ED physician has reviewed this report. - Additional Comments Diagnostic Additional Comments: Venous Doppler study, per radiologist, shows NO RIGHT LOWER EXTREMITY DEEP VEIN THROMBOSIS. ED physician has reviewed this report. Re-Evaluation - Re-Evaluation First Eval Re-Evaluation Time: 14:26 Change: Unchanged Comment: Patient given results. Family would like to check with Dr. Don, orthopedics, about hip pain and change in ambulation since the pop. Second Eval Re-Evaluation Time: 15:01 Change: Unchanged Comment: Patient was updated on consult with Dr. Don. Patient and family agree with discharge. Lower Extremity Course/Dx - Course Course Of Treatment: Patient medications reviewed this visit. Nurses notes reviewed. Allergies noted. Daughters agree that labs do not need to be drawn. In ED course, patient was given 4 mg morphine IM. Hip/Pelvis x-ray shows STATUS POST RIGHT HIP ARTHROPLASTY. NO ACUTE OSSEOUS INJURY. Venous doppler study shows NO RIGHT LOWER EXTREMITY DEEP VEIN THROMBOSIS. Family requests that Dr. Don, orthopedics, be consulted on the discharge plan since family is concerned about hip pain and inability to ambulate since the pop. Spoke with Dr. Don, orthopedics, who agrees with discharge plan. Patient will be discharged home with prescription for oxycodone and follow up from Dr. Chery, orthopedics, on her scheduled appointment for 12/11/[address] Rocha, primary care provider. Patient was instructed to return to ED for new or worsening symptoms. Patient understands and is agreeable to discharge plan. - Diagnoses Provider Diagnoses: Hip pain, Status post total replacement of right hip - Physician Notifications Discussed Care Of Patient With: Alfredo Don Time Discussed With Above Provider: 14:58 Instructed by Provider To: Other - Dr. Don orthopedicamber, agrees with discharge plan. Discharge - Sign-Out/Discharge Documenting (check all that apply): Patient Departure - Discharge Patient Received Moderate/Deep Sedation with Procedure: No - Discharge Plan Condition: Stable Disposition: HOME Patient Education Materials: Hip Pain (ED), Total Hip Replacement (DC) Referrals: Shahida Rocha MD [Primary Care Provider] - Aditya Chery MD [Medical Doctor] - 2 Days (as scheduled ) Additional Instructions: We spoke with Dr. Don healthcare consulting manager for Dr. Chery today, and he agrees with our workup. He advises that you continue with the tramadol for pain, and using your cane. Return to the Emergency Department for new or worsening symptoms. - Attestation Statements Document Initiated by Scribe: Yes Documenting Scribe: Miranda Coleman Provider For Whom Scribe is Documenting (Include Credential): Pura Fuller MD Scribe Attestation: Miranda Lomax, scribed for Pura Fuller MD on 12/09/18 at 1527.
[2018-12-09 15:26] VITALS: BP 121/93
== END | disposition home or self-care (01) ==
LOC: ED 11:44
DX: M25.551 Pain in right hip (principal); I10 Essential (primary) hypertension; Z79.82 Long term (current) use of aspirin; Z79.899 Other long term (current) drug therapy; Z88.8 Allergy status to other drugs, medicaments and biological substances; Z87.01 Personal history of pneumonia (recurrent); Z96.641 Presence of right artificial hip joint; Z96.652 Presence of left artificial knee joint
CPT/HCPCS: 96372; 99282; J2270

== ENCOUNTER 2021-03-02 06:00 | Observation (INO) ==
[~2021-03-02 06:00] MED LIST changes: +Buffered Lidocaine 1% SYRIN 1 ml INTRADERM ONE; +Dexamethasone IV 4 MG/ML VIAL 1 ml VIAL IV SLOW PU ONE; +Famotidine IV 10 MG/ML 2 ml VIAL (20 mg) IV ONE; +Lactated Ringers 1000 ml BAG 1,000 ML IV SCH; -Morphine 4 MG/ML VIAL (1 ml) 4 MG/ML VIAL IM ONE
[2021-03-02] MEDS ORDERED: Dexamethasone IV 4 MG/ML VIAL 1 ml VIAL ONE (06:33)
[2021-03-02] MEDS ORDERED: ceFAZolin 2 GM in NS PREMIX 2 GM/100 ML BAG IVPB ONE ×2 (06:33→06:34)
[2021-03-02] MEDS ORDERED: Famotidine IV 10 MG/ML 2 ml VIAL (20 mg) ONE (06:33)
[2021-03-02] MEDS ORDERED: Buffered Lidocaine 1% SYRIN 1 ml INTRADERM ONE (06:33)
[2021-03-02] MEDS ORDERED: fentaNYL 100 mcg/2 ml 50 MCG/ML VIAL ONE (06:54)
[2021-03-02] MEDS ORDERED: Midazolam 2 mg/2 ml VIAL 1 mg/ml 2 ml VIAL (2 mg) ONE ×2 (06:54→08:09)
[2021-03-02] MEDS ORDERED: Naloxone 0.4 mg VIAL 0.4 mg/ml 1 ml VIAL IV PRN (07:02)
[2021-03-02] MEDS ORDERED: oxyCODONE/Acetamin 5/325 mg TAB PO PRN ×2 (07:02→10:02)
[2021-03-02] MEDS ORDERED: fentaNYL 100 mcg/2 ml 50 MCG/ML VIAL IV PRN (07:02)
[2021-03-02] MEDS ORDERED: HYDROcodone/ACETAMIN 5/325 mg TAB PO PRN (07:02)
[2021-03-02] MEDS ORDERED: Prochlorperazine 5 mg/ml 2 ml VIAL (10 mg) IV PRN (07:02)
[2021-03-02] MEDS ORDERED: Bupivacaine 0.5% SDV PF 30ML VIAL ONE (07:10)
[2021-03-02] MEDS ORDERED: Vancomycin 1,000 MG VIAL ONE (07:10)
[2021-03-02] MEDS ORDERED: Lidocaine 1% w EPI 1:200,000 SDV 30 ML VIAL ONE (07:10)
[2021-03-02] MEDS ORDERED: ROPIVACAINE 5 MG/ML 30 ML BTL (0.5%) ONE (07:21)
[2021-03-02] MEDS ORDERED: Lidocaine 2% PF 5 ML VIAL ONE (08:24)
[2021-03-02] MEDS ORDERED: Propofol 10 MG/ML 20 ML BTL ONE ×3 (08:24→09:37)
[2021-03-02] MEDS ORDERED: EPHEDrine (Pressors) 50 MG/ML VIAL ONE (09:02)
[2021-03-02] MEDS ORDERED: Magnesium Hydroxide LIQ 30 ML UDC PO PRN (10:02)
[2021-03-02] MEDS ORDERED: diPHENhydraMINE IV 50 MG/ML 1 ml VIAL (BENADRYL) IV PRN (10:02)
[2021-03-02] MEDS ORDERED: Ondansetron 4 mg VIAL 2 MG/ML 2 ml VIAL IV PRN (10:02)
[2021-03-02] MEDS ORDERED: diPHENhydraMINE 25 mg TAB PO PRN (10:02)
[2021-03-02] MEDS ORDERED: Morphine 2 MG/ML SYRINGE IV PRN (10:02)
[2021-03-02] MEDS ORDERED: Ondansetron ODT 4 mg TAB 4 MG TAB PO PRN (10:02)
[2021-03-02] MEDS ORDERED: Lactulose 30 ml UDC PO PRN (10:02)
[2021-03-02] MEDS: D5W 1/2 NS 1000 ml BAG 1,000 ML IV SCH ×2 (11:56→22:00)
[2021-03-02] MEDS: ceFAZolin 1 GM ADVAN 1 GM in NS 0.9% 50 ML 50 ML IVPB SCH (16:02)
[2021-03-02] MEDS: Magnesium Hydroxide LIQ 30 ML UDC PO SCH (20:12)
[2021-03-03] MEDS: ceFAZolin 1 GM ADVAN 1 GM in NS 0.9% 50 ML 50 ML IVPB SCH ×2 (00:24→07:27)
[2021-03-03 06:03] LABS: Hematocrit 39 % (35-47); Hemoglobin 13.2 g/dL (12.0-16.0); Platelet Count 263 10^3/uL (150-450)
[2021-03-03 06:11] LABS: Calcium 9.2 mg/dL (8.6-10.3); Potassium 3.7 mmol/L (3.5-5.0)
[2021-03-03 06:17] LABS: EGFR African American 120.3 (>60); EGFR Non-African American 99.4 (>60)
[2021-03-03 07:19] VITALS: BP 107/72
[2021-03-03] MEDS ORDERED: Vitamin THERAPEUTIC TAB PO SCH (09:00)
[2021-03-03] MEDS: Magnesium Hydroxide LIQ 30 ML UDC PO SCH (09:10)
== END 2021-03-03 10:50 | disposition home or self-care (01) ==
LOC: OR 06:00 → SSU 06:00
PROVIDERS: ADMIT Orthopaedic Surgery; ATTEND Orthopaedic Surgery